=== PATIENT | female | born 1975 | race African-American/Black ===

== ENCOUNTER 2020-06-24 12:55 | Inpatient (IN) | payer OTHER ==
[2020-06-24] VITALS (7 sets, daily range): BP systolic 95–127; BP diastolic 46–60
[~2020-06-24] VITALS: Ht 167.6 cm; Wt 58.1 kg
[2020-06-24 13:34] LABS: MCH 14.1 pg (26.0-34.0); MCHC 26.6 g/dL (28.0-37.0); MCV 53.1 fL (80.0-100.0); PLATELET COUNT 233 thou/uL (150-400); RDW 23.1 % (10.5-14.5); WBC 6.3 thou/uL (4.0-11.0)
[2020-06-24 13:39] LABS: HEMATOCRIT 10.1 % (37.0-47.0); HEMOGLOBIN 2.7 gm/dL (12.0-15.0)
[2020-06-24 13:43] LABS: PROTIME 10.6 Seconds (9.3-11.4)
[2020-06-24 13:48] LABS: ANION GAP 10 mmol/L (7-16); BUN 7 mg/dL (7-18); CALCIUM 8.2 mg/dL (8.5-10.1); CHLORIDE 101 mmol/L (98-107); CO2 24 mmol/L (21-32); CREATININE 0.6 mg/dL (0.6-1.0); GLUCOSE 89 mg/dL (74-106); POTASSIUM 3.5 mmol/L (3.5-5.1); SODIUM 135 mmol/L (136-145)
[2020-06-24 13:54] LABS: ALBUMIN 3.6 g/dL (3.4-5.0); DIRECT BILIRUBIN < 0.1 mg/dL (<0.1-0.2); LIPASE 149 U/L (73-393); SGOT 14 U/L (15-37); SGPT 15 U/L (30-65); TOTAL BILIRUBIN 0.3 mg/dL (0.2-1.0); TOTAL PROTEIN 7.2 g/dL (6.4-8.2)
[2020-06-24 14:21] LABS: URINE BILIRUBIN NEGATIVE (Negative); URINE BLOOD TRACE (Negative); URINE CLARITY SL CLOUDY; URINE COLOR YELLOW; URINE GLUCOSE-RANDOM* NEGATIVE (Negative); URINE KETONES NEGATIVE (Negative); URINE LEUKOCYTES-REFLEX TRACE (Negative); URINE PROTEIN (DIPSTICK) NEGATIVE (Negative); URINE UROBILINOGEN 0.2 E.U./dl (0.2-1.0)
[2020-06-24 14:22] LABS: URINE NITRITE-REFLEX POSITIVE (Negative)
[2020-06-24] MEDS ORDERED: FLUOXETINE HCL10 M1 PO (14:30)
[2020-06-24 14:41] LABS: SQUAMOUS 0-3 Few /LPF (0-3); URINE WBC-REFLEX 0-5 Rare /HPF (0-5)
[2020-06-24 14:42] LABS: BACTERIA-REFLEX >30 Many /HPF (None Seen); CRYSTALS None Seen /LPF (None Seen); URINE RBC None Seen /HPF (0-2)
[2020-06-24 15:12] LABS: ABSOLUTE NEUTROPHILS 3.4 thou/uL (1.4-8.2); ANISOCYTOSIS 2+; HYPOCHROMASIA 3+; MICROCYTES 3+
--- NOTE | 2020-06-24 15:17 | NUR ---
BLOOD CONSENT SIGNED. PT STATED SHE HAD A BLOOD TRANSFUSION APPROX 22 YEARS AGO AND DID NOT HAVE ANY REACTIONS.
[2020-06-24 16:56] LABS: % SATURATION 9 % (20-39); IRON 46 ug/dL (50-170); TIBC 497 ug/dL (250-450)
[2020-06-24 17:23] LABS: FOLIC ACID 14.8 ng/mL (8.6-58.9)
--- NOTE | 2020-06-24 18:00 | NUR ---
PT ARRIVED VIA CART FROM ED. PTS ASSESSMENT IS WDL. PT IS ASYMPTOMATIC WITH LOW HGB. PT TRANSFERRED SELF FORM CART TO BED. IVF INFUSING INTO RH WITHOUT DIFFICUTLY.
[2020-06-25] VITALS (9 sets, daily range): BP systolic 98–111; BP diastolic 47–60
[2020-06-25 00:38] LABS: HEMATOCRIT 15.5 % (37.0-47.0); HEMOGLOBIN 4.8 gm/dL (12.0-15.0)
--- NOTE | 2020-06-25 03:41 | NUR ---
Assumed pt care at 1900. Pt is alert and oriented with no sign of distress noted. Pt is stable and laying in bed. Denies any pain. Assessment completed and documented. Pt is receiving PRBC. Pt is to be receiving 5 units in total,Currently receiving blood. pt is tolerating blood transfusion so far. Continue to monitor pt. No further needs at this time. No acute events at this time.
[2020-06-25 07:43] LABS: HEMATOCRIT 23.1 % (37.0-47.0); MCH 23.8 pg (26.0-34.0); MCHC 32.6 g/dL (28.0-37.0); RBC 3.16 mil/uL (4.20-5.00); RDW 33.5 % (10.5-14.5); WBC 5.2 thou/uL (4.0-11.0)
[2020-06-25 07:44] LABS: HEMOGLOBIN 7.5 gm/dL (12.0-15.0); MCV 73.2 fL (80.0-100.0)
--- NOTE | 2020-06-25 09:01 | EKG ---
[facility] [place] [address] ELECTROCARDIOGRAM REPORT Name: AKIRA Hua Room #: 203-P ADM IN M.R.#: [id number] Admission: 06/24/20 Attend Phys: Tyo Hill MD Discharge: Date of : 75 Report #: [id number] THIS REPORT FOR: cc: FAM - No family physician/PCP FAM - No family physician/PCP Demarco Jj MD [facility] ~ THIS REPORT FOR: //name// [facility] ED Test Date: 2020-06-24 Test Time: 17:29:37 Pat Name: AKIRA Hua Department: Room: 203 Gender: F [employer]: ADEEL NORRIS : 1975 Requested By: Collin Quintero Order Number: [id number] MD: Demarco Jj Measurements Intervals [place] Rate: 69 P: 64 HI: 155 QRS: 5 QRSD: 109 T: 32 QT: 423 QTc: 454 Interpretive Statements Sinus rhythm Right ventricular conduction delay No previous ECG available for comparison Electronically Signed On 06-25-2020 9:01:35 CDT by Demarco Jj [email or web address] <ELECTRONICALLY SIGNED> By: Demarco Jj MD, FACC 06/25/20900 1729 1729 Demarco Jj MD, [facility] /EPI
[2020-06-25] MEDS ORDERED: LYSTEDA650 MG PO (11:41)
[2020-06-25] MEDS ORDERED: FERROUS SULFAT325 MG PO ×2 (11:43→11:46)
[2020-06-25] MEDS ORDERED: DULCOLAX STOOL100 M1 PO (11:46)
[2020-06-25] MEDS ORDERED: LEVOFLOXACIN500 MG PO (11:49)
--- NOTE | 2020-06-25 12:23 | NUR ---
PT SEEN BY PHYSICAL THERAPY TODAY 06/25 AND INDEPENDENT WITH FUNCTIONAL MOBILITY AND TRANSFERS WELL ADLS (DRESSING LOWER BODY). OT SIGNING OFF. PLEASE LET OT DEPT KNOW IF PT NEEDS CHANGE.
--- NOTE | 2020-06-25 14:01 | NUR ---
PT CARE ASSUMED AT 0700. ASSESSMENT CHARTED. MEDICATION CHARTED. LACTULOSE GIVEN PER DR WARD; CONSTIPATION. PT DISCHARGED TO HOME. TELEMETRY D/C'D. RH IV AND LAC IV D/C'D. PAPER WORK SIGNED.
== END 2020-06-25 13:46 | disposition home or self-care (01) | DRG 811 ==
LOC: ER 12:55 → EROBS 17:01 → 2N 17:51
PROVIDERS: Nurse Practitioner; ADMIT Internal Medicine; ATTEND Internal Medicine
PROC: 30233N1 Transfusion of Nonautologous Red Blood Cells into Peripheral Vein, Percutaneous Approach (ICD-10-PCS; principal; 2020-06-24)
DX: D64.9 Anemia, unspecified (principal); E43 Unspecified severe protein-calorie malnutrition; N39.0 Urinary tract infection, site not specified; N92.1 Excessive and frequent menstruation with irregular cycle; N92.0 Excessive and frequent menstruation with regular cycle; F17.210 Nicotine dependence, cigarettes, uncomplicated; F32.9 Major depressive disorder, single episode, unspecified; Z68.20 Body mass index [BMI] 20.0-20.9, adult; Z79.899 Other long term (current) drug therapy
CPT/HCPCS: 10081